=== PATIENT | male | born 2005 | race Hispanic/Latino ===

== ENCOUNTER 2024-08-23 02:46 | Emergency (ER) | payer OTHER ==
[~2024-08-23] VITALS: Ht 152.4 cm; Wt 77.3 kg
[2024-08-23] MEDS: ONDANSETRON 4MG ORAL DISINTEGRATING TAB PO ONE (03:31)
[2024-08-23] MEDS: ACETAMINOPHEN 325 MG TAB PO ONE (03:32)
[2024-08-23 04:36] LABS: BASO % 0.1 % (0.0-1.0); EOS % 0.1 % (0.0-3.0); HEMATOCRIT 45.5 % (42.0-52.0); HEMOGLOBIN 16.2 g/dl (13.5-17.5); LYMPH # 0.3 10^3/uL (1.5-5.0); LYMPH % 3.4 % (24.0-44.0); MEAN CORPUSCULAR HGB CONC 35.6 g/dl (32.0-36.5); MEAN CORPUSCULAR VOLUME 89.7 fl (80.0-96.0); MONO # 0.3 10^3/uL (0.0-0.8); MONO % 3.4 % (2.0-8.0); NEUTROPHILS # 8.9 10^3/uL (1.5-8.5); NEUTROPHILS % 92.7 % (36.0-66.0); PLATELET COUNT, AUTOMATED 178 10^3/uL (150-450); RED BLOOD COUNT 5.07 10^6/uL (4.30-6.10); WHITE BLOOD COUNT 9.6 10^3/uL (4.0-10.0)
[2024-08-23 04:59] LABS: LIPASE 20 U/L (12-53)
[2024-08-23 05:01] LABS: ALBUMIN 4.2 G/DL (3.2-5.2); ALKALINE PHOSPHATASE 100 U/L (40-129); ALT/SGPT 13 U/L (7.0-40); AST/SGOT < 8 U/L (<34); BILIRUBIN,DIRECT 0.3 MG/DL (<0.4); BLOOD UREA NITROGEN 16 MG/DL (9-23); CALCIUM LEVEL 9.1 MG/DL (8.5-10.1); CARBON DIOXIDE LEVEL 27 MMOL/L (20-31); CHLORIDE LEVEL 105 MMOL/L (98-107); CREATININE FOR GFR 0.97 MG/DL (0.70-1.30); GLUCOSE, FASTING 123 MG/DL (60-100); SODIUM LEVEL 143 MMOL/L (136-145); TOTAL PROTEIN 7.9 G/DL (5.7-8.2)
[2024-08-23] MEDS: NS (Normal Saline) 0.9% 1,000 ML IV ONE (05:15)
[2024-08-23 05:28] LABS: KETONE, URINE AUTO RFX TRACE mg/dL (NEGATIVE); LEUKOCYTE ESTERASE UR AUTO RFX NEGATIVE (NEGATIVE); MUCUS, URINE RFX MODERATE (NEGATIVE); NITRITE, URINE AUTO RFX NEGATIVE (NEGATIVE); RBC, URINE AUTO RFX 1 /HPF (0-3); SQUAM EPITHELIAL CELL UR AURFX 0 /HPF (0-6); WBC, URINE AUTO RFX 2 /HPF (0-3)
[2024-08-23] MEDS: ONDANSETRON 4MG 2ML VIAL IV ONE (05:29)
[2024-08-23] MEDS: ACETAMINOPHEN *IV* 1,000 MG in IV 1 EA IV ONE (05:29)
[2024-08-23] MEDS: KETOROLAC 30 MG/ML 1ML VIAL IV ONE (05:30)
[2024-08-23 05:52] LABS: PROCALCITONIN 0.39 ng/ml
[2024-08-23] MEDS ORDERED: ONDA-282 PO (06:55)
[2024-08-23 07:59] VITALS: BP 105/65; TEMP 97.8; O2SAT 97
== END 2024-08-23 08:18 | disposition home or self-care (01) ==
LOC: M ED 02:46
DX: A08.11 Acute gastroenteropathy due to Norwalk agent (principal); A04.0 Enteropathogenic Escherichia coli infection; R11.2 Nausea with vomiting, unspecified; R19.7 Diarrhea, unspecified; Z79.83 Long term (current) use of bisphosphonates
CPT/HCPCS: 80048; 80076; 81001; 83605; 83690; 84145; 85025; 86790; 87040; 87486; 87507; 87581; 87633; 87798; 93041; 96361; 96365; 96375; 99285; J0131; J1885; J2405